=== PATIENT | female | born 1980 | race African-American/Black ===

== ENCOUNTER 2019-05-20 21:00 | Emergency (ER) | payer SELFPAY ==
[~2019-05-20] VITALS: Ht 165.1 cm; Wt 122.0 kg
[2019-05-20] MEDS ORDERED: SODIUM CHLORIDE 0.9% 1000ML 1,000 ML IV STA (21:28)
[2019-05-20] MEDS ORDERED: ONDANSETRON HCL INJ 2MG/ML 2ML 2 MG/ML VIAL IV ONE (21:30)
[2019-05-20] MEDS ORDERED: FAMOTIDINE 20 MG/2 ML VIAL IV ONE ×2 (21:30→21:59)
[2019-05-20] MEDS ORDERED: SODIUM CHLORIDE 0.9% 1000ML 1,000 ML ONE (21:59)
[2019-05-20] MEDS ORDERED: ONDANSETRON HCL INJ 2MG/ML 2ML 2 MG/ML VIAL ONE (21:59)
--- NOTE | 2019-05-20 22:25 | NUR ---
US TECH AT BEDSIDE
--- NOTE | 2019-05-20 22:34 | NUR ---
US COMPLETE. PT UP TO RESTROOM TO OBTAIN URINE SPEC.
--- NOTE | 2019-05-20 23:10 | NUR ---
PT RESTING QUIETLY WITH MOM AT BEDSIDE. AWAITING RAD. REPORT ON US
--- NOTE | 2019-05-20 23:46 | Diagnostic Imaging Report ---
Pelvic OB ultrasound-first trimester History: Nausea, vomiting, abdominal pain, positive test, last menstrual period 03/07/2019. Findings: There is a single live intrauterine . The gestational sac measures 4.1 cm, with an estimated gestational age of 9 weeks, 4 days. A yolk sac is not visualized. The crown-rump length is 4.5 cm, with an estimated gestational age of 11 weeks, 2 days. The estimated heart rate is 165 BPM. No evidence of subchorionic hematoma. The uterus measures 11.2 x 7.6 x 11.6 cm. The cervix is closed. The cervical length measures 3.6 cm. Incidental 2 cm nabothian cyst. There is a heterogeneous partially calcified intramural posterior body fibroid, measuring up to 3 cm. The right ovary measures 7 x 3.5 x 1.5 cm and the left ovary measures 2.8 x 1.4 x 1.6 cm. Arterial and venous Doppler flow is demonstrated in bilateral ovaries. IMPRESSION: Single live intrauterine , with an estimated gestational age of 11 weeks, 2 days. Enlarged right ovary measuring up to 7 cm, a nonspecific finding. Arterial and venous flow is demonstrated in bilateral ovaries without evidence of torsion. Recommend follow-up pelvic ultrasound. Uterine fibroid. Nabothian cyst. Signed by: Dr. Laurie Miranda MD on 05/20/2019 11:43 PM
[2019-05-20 23:58] VITALS: BP 142/76
== END 2019-05-20 23:55 | disposition home or self-care (01) ==
LOC: FSED 21:00
DX: O26.91 Pregnancy related conditions, unspecified, first trimester (principal); O21.9 Vomiting of pregnancy, unspecified; R10.9 Unspecified abdominal pain
CPT/HCPCS: 76817; 80053; 81003; 85025; 96374; 96376; 99284; J2405; J7030